=== PATIENT | male | born 1955 | race Caucasian/White ===

== ENCOUNTER 2018-05-10 09:43 | Inpatient (IN) ==
[2018-05-10] MEDS ORDERED: clonazePAM 0.5 MG TAB PO STA (10:29)
[2018-05-10 10:50] LABS: Appearance Urine Clear (Clear); Bacteria Urine Automated Negative (Negative); Bilirubin Urine Negative (Negative); Blood Urine 3+ (Negative); Color Urine Yellow; Epithelial Cell Urine Auto >30 /lpf (0-5); Glucose Urine UA Negative (Negative); Ketones Urine Negative (Negative); Leukocyte Esterase Urine Negative (Negative); Nitrite Urine Negative (Negative); RBC Urine Automated >30 /hpf (0-4); Specific Gravity Urine 1.012 (1.000-1.030); Urobilinogen Urine Negative (Negative); pH Urine 7.5 (4.5-7.5)
[2018-05-10 10:52] LABS: Protein Urine Negative (Negative)
[2018-05-10 11:18] LABS: Amphetamines+Metham, Urine Neg (Neg); Barbiturates, Urine Neg (Neg); Benzodiazepine, Urine Neg (Neg); Cocaine, Urine Neg (Neg); MDMA (Ecstacy), Urine Neg (Neg); Methadone, Urine Neg (Neg); Opiate, Urine Neg (Neg); Phencyclidine, Urine Neg (Neg)
[2018-05-10 11:27] LABS: Basophils # (auto) 0.02 K/uL (0-0.2); Basophils % (auto) 0.4 %; Eosinophils # (auto) 0.12 K/uL (0-0.5); Eosinophils % (auto) 2.4 %; Hematocrit (blood only) 43.8 % (42-52); Hemoglobin 15.4 g/dL (14.0-18.0); Immature Granulocytes # (auto) 0.01 K/uL (0.00-0.02); Immature Granulocytes % (auto) 0.2 %; Lymphocytes # (auto) 0.85 K/uL (1.2-3.4); Lymphocytes % (auto) 17.1 %; Mean Corpuscular Hgb Conc 35.2 g/dL (32-36); Mean Corpuscular Volume 92.6 fL (80-100); Mean Platelet Volume 10.9 fL (7.4-10.4); Monocytes # (auto) 0.61 K/uL (0.11-0.59); Monocytes % (auto) 12.3 %; Neutrophils # (auto) 3.35 K/uL (1.4-6.5); Neutrophils % (auto) 67.6 %; Platelet Count 189 K/uL (130-400); RDW Coefficient of Variation 12.7 % (11.5-14.5); RDW Standard Deviation 43.3 fL (36.4-46.3); Red Blood Count 4.73 M/uL (4.7-6.1); White Blood Count 4.96 K/uL (4.8-10.8)
[2018-05-10 11:45] LABS: BUN Creatinine Ratio 21.8 (10-20); Calcium 8.9 mg/dl (8.5-10.1); Creatinine Clr Calc Pharmacy 95.4 ml/min; Est GFR (African American) 109.8; Est GFR (Non-African American) 94.7; Potassium 4.3 mmol/L (3.5-5.1)
[2018-05-10 11:54] LABS: Acetaminophen < 2 ug/ml (10-30); Salicylate < 1.7 mg/dl (2.8-20)
[2018-05-10 11:56] LABS: Albumin Globulin Ratio 1.3 (0.9-2); Bilirubin,Total 0.4 mg/dl (0.2-1); Globulin 3.2 gm/dl (2.5-4.0); Total Protein 7.2 gm/dl (6.4-8.2)
--- NOTE | 2018-05-10 12:19 | Emergency Department Note ---
Entered by Daphney Rooney acting as a scribe for History of Present Illness General Chief complaint: Mental Health Evaluation Stated complaint: ANXIETY Source: patient and family () Mode of arrival: ambulatory Limitations: no limitations History of Present Illness Onset (ago): week(s) 2 Location: head (psych, anxiety) Pain Consistency: + other (worsening) Quality: + other (anixety, OCD-like symptoms) Associated symptoms: + loss of appetite and + other (The patient complains of OCD-like symptoms, 15 pound weight loss, and loss of sleep. The patient denies abdominal pain. ); no chest pain, no fever/chills (The patient denies fever.) and no shortness of breath The patient is a 62 year old male with a history of borderline hypertension, sleep apnea, and OCD who presents to the ED with complaints of worsening anxiety with an onset of 2 weeks ago. He was previously on venlafaxine which seemed to work for him for a very long time. He was off of it for a year and then was restarted in March after his anxiety worsened with the poor performance of the stock market. He states that the venlafaxine made him feel worse and so he was taken off of this medication about a week ago. Per , the patients side symptoms changed from OCD-like symptoms to depression. The patient notes that he is not suicidal, but is as close to is as you can get. He states that he is a devout [employer] and some of his obsessions have become unbearable. The patient complains of 15 pound weight loss due to loss of appetite, and loss of sleep. He did see his doctor on Thursday who prescribed him Klonopin. He takes 0.25 mg in the morning and in but states that it has not been controlling his anxiety. The patient denies fever, chest pain, shortness of breath, and abdominal pain. Home Medications Home Medications Medication Instructions Recorded Confirmed Type aluminum chloride [Drysol 1 applic TOPICAL DAILY 05/10/18 05/10/18 History Dab-O-Matic] clonazepam 0.25 mg BID PRN 05/10/18 05/10/18 History Allergies Allergy/AdvReac Type Severity Reaction Status Date / Time No Known Allergies Allergy Unverified 05/10/18 10:50 Past Med/Surg History Medical History Anxiety OCD (obsessive compulsive disorder) Social History Preferred Language: German Communication Ability: Effective Public Employment Mediator Required: No Beliefs That Will Affect Care: None Current Living Situation: Family Feels Safe at Home: Yes Smoking Status: Never smoker Hx Alcohol Use: No Hx Substance Use: No Review of Systems See HPI for pertinent positives & negatives. and A total of 10 systems reviewed and were otherwise negative Physical Exam Vital Signs Vital Signs - 24 hr 05/10/18 09:45 05/10/18 10:18 05/10/18 11:13 Temperature 36.5 C Temperature Source Oral Oral Sepsis Recent Fever Within 48 Hours No Sepsis Action Taken by Nursing No Action Required Pulse Rate 95 H Pulse Rate [Finger] Pulse Rhythm Regular Pulse Strength Normal Respiratory Rate 18 Respiratory Effort / Characteristics Non-Labored Respiratory Depth Normal Respiratory Pattern Regular Blood Pressure 165/97 H Blood Pressure [Right Arm] Blood Pressure Mean 119 Blood Pressure Mean [Right Arm] Blood Pressure Position Sitting Blood Pressure Position [Right Arm] Pulse Oximetry 97 Oxygen Delivery Method Room Air Room Air 05/10/18 13:29 05/10/18 14:09 05/10/18 14:50 Temperature 36.6 C Temperature Source Oral Sepsis Recent Fever Within 48 Hours Sepsis Action Taken by Nursing Pulse Rate Pulse Rate [Finger] 96 H 79 Pulse Rhythm Pulse Strength Respiratory Rate 20 16 Respiratory Effort / Characteristics Non-Labored Non-Labored Respiratory Depth Normal Normal Respiratory Pattern Regular Regular Blood Pressure Blood Pressure [Right Arm] 168/89 H 152/92 H Blood Pressure Mean Blood Pressure Mean [Right Arm] 115 112 Blood Pressure Position Blood Pressure Position [Right Arm] Sitting Sitting Pulse Oximetry 96 Oxygen Delivery Method Room Air Constitutional: Vital signs reviewed. Eyes: Pupils are equal round reactive to light. Conjunctiva are noninjected. ENT: Pharynx is clear without erythema or exudate. Mucous membranes are moist. Neck supple without meningeal signs. Respiratory: Clear to auscultation bilaterally. Breath sounds are equal bilaterally. Cardiovascular: Regular rate and rhythm. No rubs or gallops. GI: Soft, nondistended and nontender. Bowel sounds are present. Musculoskeletal: No peripheral edema. No lower extremity tenderness. Integumentary: No cyanosis. Neurological: The patient is awake and alert. No focal deficits. Psychiatric: Very anxious. Course 1007: Past medical records reviewed. The patient was evaluated in room A08, and a complete history and physical examination were performed. 1220: The patient has been accepted upstairs in [address] [place] [address] for psychiatric care. Administered Medications Discontinued Medications Clonazepam (Klonopin) 0.25 mg PO NOW STA Stop: 05/10/18 10:30 Last Admin: 05/10/18 10:38 Dose: 0.25 mg Documented by: [id number] Medical Decision Making Differential Diagnosis Differential Diagnoses Include: Anxiety, depression, panic attack, metabolic derangement, OCD. Medical Records Attestation: I reviewed the patient's medical records. Home Medications Current Medication List: was personally reviewed by me Laboratory Data Attestation: I reviewed the patient's lab results. Result diagrams: 05/10/18 11:11 05/10/18 11:11 Lab Results 05/10/18 05/10/18 05/10/18 Range/Units 10:32 10:32 11:11 WBC 4.96 (4.8-10.8) K/uL RBC 4.73 (4.7-6.1) M/uL Hgb 15.4 (14.0-18.0) g/dL Hct 43.8 (42-52) % MCV 92.6 (80-100) fL MCH 32.6 (25-34) pg MCHC 35.2 (32-36) g/dL RDW Std Deviation 43.3 (36.4-46.3) fL RDW Coeff of [place] 12.7 (11.5-14.5) % Plt Count 189 (130-400) K/uL MPV 10.9 H (7.4-10.4) fL Immature Gran % (Auto) 0.2 % Neut % (Auto) 67.6 % Lymph % (Auto) 17.1 % [place] % (Auto) 12.3 % Eos % (Auto) 2.4 % Baso % (Auto) 0.4 % Immature Gran # (Auto) 0.01 (0.00-0.02) K/uL Neut # (Auto) 3.35 (1.4-6.5) K/uL Lymph # (Auto) 0.85 L (1.2-3.4) K/uL [place] # (Auto) 0.61 H (0.11-0.59) K/uL Eos # (Auto) 0.12 (0-0.5) K/uL Baso # (Auto) 0.02 (0-0.2) K/uL Sodium (136-145) mmol/L Potassium (3.5-5.1) mmol/L Chloride (98-107) mmol/L Carbon Dioxide (21-32) mmol/L Anion Gap (3-11) BUN (7-18) mg/dl Creatinine (0.6-1.4) mg/dl Est Cr Clr Drug Dosing ml/min Est GFR ( Amer) Est GFR (Non-Af Amer) BUN/Creatinine Ratio (10-20) Glucose (70-99) mg/dl Calcium (8.5-10.1) mg/dl Total Bilirubin (0.2-1) mg/dl AST (15-37) U/L ALT (12-78) U/L Alkaline Phosphatase (45-117) U/L Total Protein (6.4-8.2) gm/dl Albumin (3.4-5.0) gm/dl Globulin (2.5-4.0) gm/dl Albumin/Globulin Ratio (0.9-2) TSH (0.300-4.500) uIu/ml Urine Color Yellow Urine Appearance Clear (Clear) Urine pH 7.5 (4.5-7.5) Ur Specific [place] 1.012 (1.000-1.030) Urine Protein Negative (Negative) Urine Glucose (UA) Negative (Negative) Urine Ketones Negative (Negative) Urine Blood 3+ H (Negative) Urine Nitrite Negative (Negative) Urine Bilirubin Negative (Negative) Urine Urobilinogen Negative (Negative) Ur Leukocyte Esterase Negative (Negative) Urine WBC (Auto) 1-5 (0-5) /hpf Urine RBC (Auto) >30 H (0-4) /hpf U Hyaline Cast (Auto) 1-5 (0-5) /lpf U Epithel Cells (Auto) >30 H (0-5) /lpf Urine Bacteria (Auto) Negative (Negative) Salicylates (2.8-20) mg/dl Urine Opiates Screen Neg (Neg) Ur Methadone, Qual Neg (Neg) Acetaminophen (10-30) ug/ml Urine Barbiturates Neg (Neg) Ur Phencyclidine (PCP) Neg (Neg) U Amphetamin/Meth Scrn Neg (Neg) MDMA (Ecstasy) Screen Neg (Neg) U Benzodiazepines Scrn Neg (Neg) Ur Cocaine Metabolite Neg (Neg) U Marijuana (THC) Screen Neg (Neg) Ethyl Alcohol mg/dL (0-3) mg/dl 05/10/18 05/10/18 05/10/18 Range/Units 11:11 11:11 11:11 WBC (4.8-10.8) K/uL RBC (4.7-6.1) M/uL Hgb (14.0-18.0) g/dL Hct (42-52) % MCV (80-100) fL MCH (25-34) pg MCHC (32-36) g/dL RDW Std Deviation (36.4-46.3) fL RDW Coeff of [place] (11.5-14.5) % Plt Count (130-400) K/uL MPV (7.4-10.4) fL Immature Gran % (Auto) % Neut % (Auto) % Lymph % (Auto) % [place] % (Auto) % Eos % (Auto) % Baso % (Auto) % Immature Gran # (Auto) (0.00-0.02) K/uL Neut # (Auto) (1.4-6.5) K/uL Lymph # (Auto) (1.2-3.4) K/uL [place] # (Auto) (0.11-0.59) K/uL Eos # (Auto) (0-0.5) K/uL Baso # (Auto) (0-0.2) K/uL Sodium 139 (136-145) mmol/L Potassium 4.3 (3.5-5.1) mmol/L Chloride 105 (98-107) mmol/L Carbon Dioxide 27 (21-32) mmol/L Anion Gap 7.0 (3-11) BUN 19 H (7-18) mg/dl Creatinine 0.85 (0.6-1.4) mg/dl Est Cr Clr Drug Dosing 95.4 ml/min Est GFR ( Amer) 109.8 Est GFR (Non-Af Amer) 94.7 BUN/Creatinine Ratio 21.8 H (10-20) Glucose 98 (70-99) mg/dl Calcium 8.9 (8.5-10.1) mg/dl Total Bilirubin 0.4 (0.2-1) mg/dl AST 16 (15-37) U/L ALT 49 (12-78) U/L Alkaline Phosphatase 53 (45-117) U/L Total Protein 7.2 (6.4-8.2) gm/dl Albumin 4.0 (3.4-5.0) gm/dl Globulin 3.2 (2.5-4.0) gm/dl Albumin/Globulin Ratio 1.3 (0.9-2) TSH 1.650 (0.300-4.500) uIu/ml Urine Color Urine Appearance (Clear) Urine pH (4.5-7.5) Ur Specific [place] (1.000-1.030) Urine Protein (Negative) Urine Glucose (UA) (Negative) Urine Ketones (Negative) Urine Blood (Negative) Urine Nitrite (Negative) Urine Bilirubin (Negative) Urine Urobilinogen (Negative) Ur Leukocyte Esterase (Negative) Urine WBC (Auto) (0-5) /hpf Urine RBC (Auto) (0-4) /hpf U Hyaline Cast (Auto) (0-5) /lpf U Epithel Cells (Auto) (0-5) /lpf Urine Bacteria (Auto) (Negative) Salicylates < 1.7 L (2.8-20) mg/dl Urine Opiates Screen (Neg) Ur Methadone, Qual (Neg) Acetaminophen < 2 L (10-30) ug/ml Urine Barbiturates (Neg) Ur Phencyclidine (PCP) (Neg) U Amphetamin/Meth Scrn (Neg) MDMA (Ecstasy) Screen (Neg) U Benzodiazepines Scrn (Neg) Ur Cocaine Metabolite (Neg) U Marijuana (THC) Screen (Neg) Ethyl Alcohol mg/dL < 3.0 (0-3) mg/dl Blood Pressure Blood Pressure Findings: Elevated blood pressure Blood Pressure Disposition: Referred to patients primary care provider MDM Narrative I did perform a limited focused review of portions of the patient's old chart on the electronic medical record. The patient has had no recent pertinent visits to this hospital. I did evaluate the patient as noted above. The patient is presenting with worsening anxiety. I did order and review the patient's blood work as noted in the electronic medical record. Patient was medically cleared. He was assessed by the mental health machine adjuster leader case trim. He was referred to [facility] for inpatient [facility] care. He was accepted for hospitalization by [facility] Impression & Plan Severe anxiety Discharge Plan Visit Data *Final* Discharge Date/Time: 05/10/18 13:31 Chief Complaint: Mental Health Evaluation Stated Complaint: ANXIETY Other Complaint: Anxiety ED Provider: Hardeep Jeffery Discharge Problem: Severe anxiety Patient Disposition: Admitted As Inpatient Discharge Instructions Interventions: ED Discharge Assessment Last Done: 05/10/18 13:31 The scribe's documentation has been prepared under my direction and personally reviewed by me in its entirety. I confirm that the note above accurately refl ects all work, treatment, procedures, and medical decision making performed by me.
[2018-05-10] MEDS ORDERED: SODIUM CHLORIDE 0.65% NA SOLN 45 ML (OCEAN) PRN (12:51)
[2018-05-10] MEDS ORDERED: ACETAMINOPHEN 325 MG TAB PO PRN (12:51)
[2018-05-10] MEDS ORDERED: ALUMINUM/MAGNESIUM SUSP 30 ML UDC PO PRN (12:51)
[2018-05-10] MEDS ORDERED: MAGNESIUM HYDROXIDE SUSP 30 ML UDC PO PRN (12:51)
[2018-05-10] MEDS ORDERED: BISMUTH SUBSALICYLATE PER ML OMNICELL CHARGE PO PRN (12:51)
--- NOTE | 2018-05-10 14:57 | History & Physical ---
Date of Service May 10, 2018 Impression / Recommendations Impression This 62-year-old man presents with a somewhat atypical history of obsessive- compulsive disorder. He reports that his obsessive-compulsive diet adds were triggered by an event that occurred in 2001, when he was in his 40s, and have persisted, at least intermittently, since that time. At various times since 2001 the patient has been on several psychiatric medications. These include Paxil (ineffective and resulted in anorgasmia), Wellbutrin, which she feels was partially effective for depression, but not effective with his obsessive symptoms, and Lexapro which she also feels was effective. Most recently, he had been taking Pristiq, but stopped this medication because he was "feeling great" at the beginning of 2018. His obsessive symptoms returned in February following a theological discussion with his father regarding the existence of hell, and have intensified since that time. Further, as is often the case, the patient's obsessive symptoms were attended by symptoms of depression that include marketing operations associate awakening, psychosocial withdrawal, severe anxiety, decreased concentration and focus, anergia, anhedonia, apathy, and withdrawal. It may be that the patient has obsessive compulsive personality style that tends to become exacerbated while he is experiencing depression. He indicates that even off medication he can be free of obsessive features entirely, and is never quite sure what may trigger a return to an obsessive-compulsive diet adds. For example, he states, "sometimes the stock market goes down, and I do not obsess. Other times, the market goes down and I abscess completely and have to check all the time to see where the market stands," and he notes that once he gets an obsessional thought in his head he is completely unable to discharge. The plan is to actively treat the depression and anxiety with medications that may also be effective in treating OCD. He may benefit as an outpatient from cognitive behavioral therapy. (1) Generalized anxiety disorder: 05/10/18 - Begin Sertraline 50 mg daily and titrate as indicated. - Begin BuSpar 5 mg BID and titrate as indicated. Present on Admission?: Yes (2) Obsessive compulsive disorder: 05/10/18 - Begin sertraline 50 mg daily for both depression and OCD. -Clonazpam HS for night-time obsessive features. Present on Admission?: Yes (3) Major depress dis, severe: 05/10/18 -Sertraline 50 mg HS for depression, anxiety and OCD symptoms. -Not suicidal, per the patient, but has a gun collection at home and is not disposed to secure it. -Hydroxyzine 50 mg HS for sleep (standing order) -Consider Ambien or mirtazepine if not effective. (Reports trazodone was not effective in the past.) Present on Admission?: Yes Protective Factors Assessment Zoroastrianism Beliefs: Yes : Yes Responsible for Young Children: No Employed: No (Retired) Stable Relationships: Yes Supportive Family: Yes Good Rapport with Provider: Yes Absence of Any Risk Factors Above: No (The patient notes that he has guns in the house, and insists that he does not consider this to be a risk for him) Psychiatric History Identifying Data SUKH MERCADO is a 62-year-old M who currently with his , qasim. He has a history of depression and obsessive compulsive disorder. He was admitted on 05/10/18 12:52 on a 201 voluntary because of an inability to function at home. Specifically, the patient has been so obsessively absorbed with various concerns that he has been unable to independently perform routine activities of daily living. He also reports that he has not been sleeping more than "3 or 4 hours" a night with marketing operations associate awakening, and has had a substantial loss of appetitea circumstance that has resulted in a 15 pound weight loss since February. Chief Complaint "I can't function at home". History of Present Illness The patient reports that since mid February he has obsessed almost constantly about several issues, but primarily about the congregational question of "is there a hell?" Reportedly, the patient and his father recently had an argument on the subject, with the patient's father, a former smelter operator in the [facility] [employer] of [place], telling the patient that he does not believe in the "cartoon" version of hell and, this circumstance, because the patient to have what he refers to as a "crisis of curz." Patient notes that he first became aware of his problem with obsessive-compulsive disorder when, in 2001, he was told that he had failed a section of a lie detector test that he had to take as part of a security clearance for his job. Specifically, he was told that he had failed the "disclosure" section which had to do with his disclosing confidential government and information to others. He could not recall doing so, but obsessed about the possibility that he might have inadvertently mentioned something to his . He subsequently periodically reported that he "might have" disclose certain things to his and, eventually, he lost his security clearance. (He was later told that part of the test often involves the examiner falsely asserting that that portion of the test had been failed.) He is security was restored in 2003, but subsequent to that he became aware of obsessional thoughts over such things as the stock market. After the stock market bear market of 2007 he found that he was compulsively checking the stock market in a ritualized fashion. Initially, the patient recognized that what had originally been "just OCD" turned to OCD and depression. The patient does not report obsessive-compulsive diad such as germ phobia/handwashing, checking, counting, or excessive devotion to order or lists. The patient does report that he has had great deal of difficulty sleeping. Although he does not have initial insomnia, he describes marketing operations associate awakening, usually at around 3 AM, and finds that he begins obsessing and is unable to go back to sleep. He notes that this pattern has been in place for quite some time. He was prescribed clonazepam 0.25 mg at bedtime, and although he feels this helps "a little," he says that it has not really allowed him to sleep much longer than he was sleeping without it. Further, the patient reports feeling generally anxious, and reports that his mood is both anxious and depressed. He complains of decreased energy, anhedonia, and psychosocial withdrawal. 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 I am too anxious and obsessed for anything else." There is no history of elvira or hypomania. The patient reports that he has "quite a gun collection" at home. The guns are secured in the cabinet, but he has a coles to them. He states, "100%, I am not going to commit suicide." I try to explain to him that with depression, suicidal ideation can subsequently occur if her depression becomes worse and that I would recommend that he secure the guns. His response was to say "that really will not be necessary. I will never commit suicide." In March 2018 he was placed on Pristiq at doses that range from 25 up to 100 mg a day. (He reports that he feels that he responded favorably to Pristiq in the past.) However, this time around he felt that Pristiq was not effective and after 4 days at 100 mg daily his told him to go back to the doctor because "it was not working." His primary care doctor, the prescribing physician, told him that he wanted him off all psychiatric medications for "2 weeks," and although the patient had told me that Pristiq was not helping, he he notes that discontinuing the medication seems to have resulted in an intensification of his earlier symptoms. Over the years, several psychiatric medications have been tried. He reports that he was given Paxil at an unspecified dose. He notes that he does not feel Paxil helped, and he experienced anorgasmia as a side effect. Later, he was given bupropion, again at unspecified dose, and he reports that he felt that that helped, at least with depression. Also, the patient had a trial of Lexapro, and the patient's recollection is that this medication had been helpful and did not result in an orgasmic. Past Psychiatric History Previous Psych History: The patient reports that he is taken several psychiatric medications in the past for depression and OCD. There is no history of intent ional self-injurious behaviors, the patient also has no history of violence directed towards the person or property of others. Current Psychiatric Diagnosis: Anxiety Outpatient Services: The patient reports that he is taking psychiatric medications as prescribed by primary care physicians over the years. He hopes to find a local psychiatrist and psychologist, but has been unable to secure an appointment on his own. His past medications have included Paxil (discontinued because it was not effective and caused anorgasmia), Wellbutrin, which was partly effective, Lexapro, which was also felt to be effective, and, most recently, Pristiq. He estimates that he discontinued Pristiq at the beginning of 2017 because he was feeling "fantastic," after the exacerbation of his depression and obsessive symptoms in February 2018 he started back on Pristiq at 25 mg a day, then 50 mg a day, and then 100 mg a day. He says the Pristiq was not effective, but then he added that his mood and obsessive features got "worse" when he stopped the medication on the advice of his primary care doctor. He stopped t Pristiq s approximately a week or 2 ago. He is also been taking diazepam 0.25 mg at bedtime. Previous Psych Admissions: This is the patient's first psychiatric hospitalizat ion History of Previous Suicide Attempt: No Describe Attempts in the Past: No previous attempts Past Head Trauma/Neuro History History of Concussion/Seizure: No Allergies Allergy/AdvReac Type Severity Reaction Status Date / Time No Known Allergies Allergy Unverified 05/10/18 10:50 Home Medications Home Medications Medication Instructions Recorded Confirmed Type aluminum chloride [Drysol 1 applic TOPICAL DAILY 05/10/18 05/10/18 History Dab-O-Matic] clonazepam 0.25 mg BID PRN 05/10/18 05/10/18 History Family History Family History of: None Alcohol History Hx of Alcohol Use Over the Past 12 Months: No AUDIT Total Score: 0 Smoking Use Smoking Status: Never smoker Substance History Hx of Prescription Med Misuse Over the Past 12 Months: No Hx of Over the Counter Med Misuse Over the Past 12 Months: No Hx of Inhalent Misuse Over the Past 12 Months: No Hx of Organic Substance Use Over the Past 12 Months: No Hx of Illegal Substances/Street Drug Use Over Past 12 Months: No Personal History Living Arrangements: Home Patient History Medical History Anxiety OCD (obsessive compulsive disorder) Social History Preferred Language: Macedonian Communication Ability: Effective Learning Disabilities Resource Teacher Required: No Beliefs That Will Affect Care: None Current Living Situation: Family Feels Safe at Home: Yes Smoking Status: Never smoker Hx Alcohol Use: No Hx Substance Use: No Review of Systems All systems reviewed & are unremarkable except as noted in HPI & below The physical examination and review of systems completed by Harleen Newman MD have been reviewed and are accepted as medical clearance to the behavioral health unit. Physical Exam Psychiatric Orientation: alert and oriented x 3 Apperance: appropriately groomed Eye Contact: good eye contact Motor Behavior: steady gait and station The patient's thought processes are somewhat circumferential and overinclusive. The patient appears to have significant difficulty concentrating, as direct function of his tendency to obsess. He often does not attend to what I am saying to him during the interview and it becomes apparent that he has stopped listening because he is thinking of something else he wants to say or add to, or reiterate what he had previously said. Affect: + depressed affect and + anxious affect Mood: + depressed mood and + anxious mood Thought Process: + circumstantial thought process Thought Content: + preoccupation, + obsessions and reality based without delusions Suicidal Thoughts: denies suicidal thoughts Homicidal Thoughts: denies homicidal thoughts Hallucinations: no auditory hallucinations Cognition: recent memory grossly intact, remote memory grossly intact, attention grossly intact and language grossly intact Estimated Intelligence: + above average estimated intelligence Insight: + fair insight Judgement: good judgement Vital Signs (Past 24 Hours) Last Vital Signs Temp 36.5 C 05/10/18 09:45 Pulse 96 H 05/10/18 13:29 Resp 20 05/10/18 13:29 BP 168/89 H 05/10/18 13:29 Pulse Ox 96 05/10/18 13:29 Results & Data Laboratory Results Laboratory Results - last 24 hr 05/10/18 05/10/18 05/10/18 10:32 10:32 11:11 WBC 4.96 RBC 4.73 Hgb 15.4 Hct 43.8 MCV 92.6 MCH 32.6 MCHC 35.2 RDW Std Deviation 43.3 RDW Coeff of [place] 12.7 Plt Count 189 MPV 10.9 H Immature Gran % (Auto) 0.2 Neut % (Auto) 67.6 Lymph % (Auto) 17.1 [place] % (Auto) 12.3 Eos % (Auto) 2.4 Baso % (Auto) 0.4 Immature Gran # (Auto) 0.01 Neut # (Auto) 3.35 Lymph # (Auto) 0.85 L [place] # (Auto) 0.61 H Eos # (Auto) 0.12 Baso # (Auto) 0.02 Sodium Potassium Chloride Carbon Dioxide Anion Gap BUN Creatinine Est Cr Clr Drug Dosing Est GFR ( Amer) Est GFR (Non-Af Amer) BUN/Creatinine Ratio Glucose Calcium Total Bilirubin AST ALT Alkaline Phosphatase Total Protein Albumin Globulin Albumin/Globulin Ratio TSH Urine Color Yellow Urine Appearance Clear Urine pH 7.5 Ur Specific [place] 1.012 Urine Protein Negative Urine Glucose (UA) Negative Urine Ketones Negative Urine Blood 3+ H Urine Nitrite Negative Urine Bilirubin Negative Urine Urobilinogen Negative Ur Leukocyte Esterase Negative Urine WBC (Auto) 1-5 Urine RBC (Auto) >30 H U Hyaline Cast (Auto) 1-5 U Epithel Cells (Auto) >30 H Urine Bacteria (Auto) Negative Salicylates Urine Opiates Screen Neg Ur Methadone, Qual Neg Acetaminophen Urine Barbiturates Neg Ur Phencyclidine (PCP) Neg U Amphetamin/Meth Scrn Neg MDMA (Ecstasy) Screen Neg U Benzodiazepines Scrn Neg Ur Cocaine Metabolite Neg U Marijuana (THC) Screen Neg Ethyl Alcohol mg/dL 05/10/18 05/10/18 05/10/18 11:11 11:11 11:11 WBC RBC Hgb Hct MCV MCH MCHC RDW Std Deviation RDW Coeff of [place] Plt Count MPV Immature Gran % (Auto) Neut % (Auto) Lymph % (Auto) [place] % (Auto) Eos % (Auto) Baso % (Auto) Immature Gran # (Auto) Neut # (Auto) Lymph # (Auto) [place] # (Auto) Eos # (Auto) Baso # (Auto) Sodium 139 Potassium 4.3 Chloride 105 Carbon Dioxide 27 Anion Gap 7.0 BUN 19 H Creatinine 0.85 Est Cr Clr Drug Dosing 95.4 Est GFR ( Amer) 109.8 Est GFR (Non-Af Amer) 94.7 BUN/Creatinine Ratio 21.8 H Glucose 98 Calcium 8.9 Total Bilirubin 0.4 AST 16 ALT 49 Alkaline Phosphatase 53 Total Protein 7.2 Albumin 4.0 Globulin 3.2 Albumin/Globulin Ratio 1.3 TSH 1.650 Urine Color Urine Appearance Urine pH Ur Specific [place] Urine Protein Urine Glucose (UA) Urine Ketones Urine Blood Urine Nitrite Urine Bilirubin Urine Urobilinogen Ur Leukocyte Esterase Urine WBC (Auto) Urine RBC (Auto) U Hyaline Cast (Auto) U Epithel Cells (Auto) Urine Bacteria (Auto) Salicylates < 1.7 L Urine Opiates Screen Ur Methadone, Qual Acetaminophen < 2 L Urine Barbiturates Ur Phencyclidine (PCP) U Amphetamin/Meth Scrn MDMA (Ecstasy) Screen U Benzodiazepines Scrn Ur Cocaine Metabolite U Marijuana (THC) Screen Ethyl Alcohol mg/dL < 3.0 Current Inpatient Medications Current Inpatient Medications: Current Inpatient Medications Acetaminophen (Tylenol) 650 mg PO Q4H PRN PRN Reason: Headache or Minor Fever Stop: 06/09/18 12:50 Al Hydrox/Mg Hydrox/Simethicone (Maalox) 30 ml PO Q4H PRN PRN Reason: GI Upset Stop: 06/09/18 12:50 Bismuth Subsalicylate (Kaopectate) 15 ml PO PRN PRN PRN Reason: Loose Stool Stop: 06/09/18 12:50 Buspirone HCl (Buspar) 5 mg PO BID MALACHI Stop: 06/09/18 20:59 Hydroxyzine HCl (Vistaril) 25 mg PO Q4H PRN PRN Reason: Anxiety Stop: 06/09/18 12:50 Hydroxyzine HCl (Vistaril) 50 mg PO HS MALACHI Stop: 06/09/18 21:59 Magnesium Hydroxide (Milk Of Magnesia) 30 ml PO DAILY PRN PRN Reason: Heartburn Stop: 06/09/18 12:50 Sertraline HCl (Zoloft) 50 mg PO QAM MALACHI Stop: 06/09/18 14:29 Sodium Chloride ([place] Nasal) 1 - 2 sprays NA PRN PRN PRN Reason: Nasal Dryness/Congestion Stop: 06/09/18 12:50 CPT Code CPT Code Initial Hospital Care: 24060
[2018-05-10] MEDS: SERTRALINE HCL 50 MG TABLET PO SCH (15:58)
[2018-05-11] MEDS: clonazePAM 0.5 MG TAB PO PRN (01:35)
[2018-05-11] MEDS: SERTRALINE HCL 50 MG TABLET PO SCH (07:40)
--- NOTE | 2018-05-11 11:49 | Psychiatric Progress Note ---
Date of Service May 11, 2018 Impression / Recommendations Impression Today, the patient reports that he slept somewhat better last night. 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 At the same time, he tells me that his anxiety and depression have not improved. He notes that he his anxiety tends to peak in the late morning, usually at around 10 AM or 11 AM. The patient reports continued obsessional thoughts regarding matters of advent doctor and and the inerrancy of biblical scripture. He reports no adverse effects associated with sertraline or BuSpar, thus far. However, he reports that neither has seemed to have had any effect on his depression or his anxiety, and I explained to the patient's that we would not necessarily expect him to enjoy immediate relief, but, instead, both medications generally take time to become effective. He was given as needed hydroxyzine 25 mg for anxiety this morning, and nursing staff report that it was ineffective in managing his anxiety, and the patient endorses this finding. Today, we discussed various treatment options. Patient reports that he has tolerated sertraline and buspirone well without any noted side effects. We had considered adding aripiprazole as an adjunct to sertraline, but the first step will be to increase the sertraline to a more standard dosage. Today the sertraline is being increased to 100 mg daily. We are also increasing buspirone from a dose of 5 mg twice a day to a dose of 10 mg 3 times a day. Patient explains that he has been taking clonazepam 0.25 mg in the morning as well as at bedtime, and has tolerated 0.25 mg without excessive sedation. He notes that it is also been effective in managing the overwhelming anxiety which he describes as "holding [him] prisoner." We also discussed the question of whether he should take a clonazepam in the middle the night she awakened and not be able to fall back to sleep, and I advised him that at the low dose of 0.25 mg it would be acceptable for him to take clonazepam as late as 3:30 in the morning, but I would not advise him taking it after that because he will be getting his morning dose in a few hours. He tells me that last night was the best night sleep he has had a long time, and attributes that to taking the Klonopin between 1 and 2 AM when he awakened. I also suggested that he request a visit from his vice president biostatistics as a possible source of comfort. (1) Generalized anxiety disorder: 05/10/18 - Begin Sertraline 50 mg daily and titrate as indicated. - Begin BuSpar 5 mg BID and titrate as indicated. 05/11/18 -Increase sertraline to 100 mg daily. -Give clonazepam 0.5 mg stat for anxiety. -Begin clonazepam 0.25 qam as a standing dose. Offer clonazepam 0.25 BID PRN anxiety during the day. Continue clonazepam 0.25 mg HS, with repeat times one before 3:30AM. -Increase BuSpar to 10 mg BID. (2) Obsessive compulsive disorder: 05/10/18 - Begin sertraline 50 mg daily for both depression and OCD. -Clonazpam HS for night-time obsessive features. 05/11/18 - Increase sertraline to 100 mg daily. - Discontinue suicide precautions. The patient strongly denies any suicidal ideation. (3) Major depress dis, severe: 05/10/18 -Sertraline 50 mg HS for depression, anxiety and OCD symptoms. -Not suicidal, per the patient, but has a gun collection at home and is not disposed to secure it. -Hydroxyzine 50 mg HS for sleep (standing order) -Consider Ambien or mirtazepine if not effective. (Reports trazodone was not effective in the past.) 05/11/18 -Increase sertraline to 100 mg daily and continue to titrate -Consider adding aripiprazole 5 mg as an adjunct. Present on Admission?: Yes Inventory Assets Strengths: Motivated to recovery. Supportive family. Successful career. Needs: Relief from depression, generalized anxiety, and obsessional thoughts. Risk Factors Assessment Male: Yes : Yes Do You Have Access To A Gun?: Yes Health Problems: No Mental Health Diagnoses: Yes Substance Use Disorders: No Previous Attempt: No Previous Attempt; Highly Lethal: No Previous Attempt; Planned: No Previous Attempt; Didn't Tell Anyone: No Family History of Suicide: No Previous Psychiatric Hospitalization: No Hopelessness: No Smoker: No Protective Factors Assessment Judaism Beliefs: Yes : Yes Responsible for Young Children: No Employed: No (Retired) Stable Relationships: Yes Supportive Family: Yes Good Rapport with Provider: Yes Absence of Any Risk Factors Above: No (The patient notes that he has guns in the house, and insists that he does not consider this to be a risk for him) Interval History Chief Complaint "I slept better, but I'm still really, really nervous." Review of Systems Sleep Information Total Hours of Sleep: 5.5 Sleep Comments: pt given vistaril per rn. pt on c-pap during the night. pt on q-15 minute checks Meal Information Percent Meal Consumed - Breakfast: 100 Percent Meal Consumed - Dinner: 100 Subjective Subjective Patient was seen & assessed and interval progress reviewed with Treatment Team. I met with the patient individually in order to assess his current mental status, evaluate his response to treatment, coordinate any adjustments in his medication regimen, and address issues and concerns that may arise. Today, I was able to talk with the patient more about the fact that his obsessive- compulsive symptoms seem to be somewhat atypical, and that they did not began in childhood and, instead, by his own report, began when he was in his 40s (in 2001.) The patient tells me that he has been thinking about this and realizes that in years past he had other, similar, obsessive-compulsive dyads. 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 Within that context, he became obsessed with the idea that should he call 1 of the partners they would tell him that they had decided to drop out of the business activity, and the anxiety associated with that fear compelled him to never call anyone. The patient chuckled when he said, of course, that became a self-fulfilling prophecy. When I never called him, they called me to tell me they were dropping out because there was no activity." However, we looked at the fact that his father and he had had the discussion regarding the existence of boris topic about which the patient tells me he is now obsessedoriginally in December 2017, but the obsessive ruminations regarding this did not occur until mid February. The patient also confirms that he stopped psychiatric medications at the beginning of 2017 and continued to do very well for the next 11 monthswith no obsessions, no anxiety, and no depression. He explains this by saying, "I guess that d uring that. There was nothing for me to obsess about. Everything was going well. The stock market was good, so I did not obsess about that." However, again, the current obsession has to do with the existence of the biblical hell, and the precipitant for that occurred in December without him developing obsessive symptoms around it at the time. Today, the patient emphasizes how very anxious he is. I had an opportunity to speak with his primary care physician, Dr. Newman, and she is in agreement with the current treatment plan. Physical Exam Psychiatric Orientation: oriented x 3 Apperance: appropriately dressed and appropriately groomed Eye Contact: good eye contact Motor Behavior: steady gait and station Speech: normal rate/rhythm/volume of speech Affect: + depressed affect and + anxious affect Mood: + depressed mood and + anxious mood Thought Process: goal directed thought process, linear/logical thought process and clear/coherent thought process Thought Content: + preoccupation, + obsessions and reality based without delusions Suicidal Thoughts: denies suicidal thoughts Homicidal Thoughts: denies homicidal thoughts Hallucinations: no auditory hallucinations Cognition: recent memory grossly intact, remote memory grossly intact and language grossly intact Estimated Intelligence: + above average estimated intelligence Insight: + fair insight Judgement: good judgement Vital Signs (Past 24 Hours) Last Vital Signs Temp 36.4 C L 05/11/18 06:48 Pulse 81 05/11/18 06:49 Resp 16 05/11/18 06:48 BP 150/97 H 05/11/18 06:49 Pulse Ox 96 05/10/18 13:29 Results & Data Laboratory Results Laboratory Results - last 24 hr 05/10/18 05/10/18 05/10/18 11:11 11:11 11:11 Sodium 139 Potassium 4.3 Chloride 105 Carbon Dioxide 27 Anion Gap 7.0 BUN 19 H Creatinine 0.85 Est Cr Clr Drug Dosing 95.4 Est GFR ( Amer) 109.8 Est GFR (Non-Af Amer) 94.7 BUN/Creatinine Ratio 21.8 H Glucose 98 Calcium 8.9 Total Bilirubin 0.4 AST 16 ALT 49 Alkaline Phosphatase 53 Total Protein 7.2 Albumin 4.0 Globulin 3.2 Albumin/Globulin Ratio 1.3 TSH 1.650 Salicylates < 1.7 L Acetaminophen < 2 L Ethyl Alcohol mg/dL < 3.0 Current Inpatient Medications Current Inpatient Medications: Current Inpatient Medications Acetaminophen (Tylenol) 650 mg PO Q4H PRN PRN Reason: Headache or Minor Fever Stop: 06/09/18 12:50 Al Hydrox/Mg Hydrox/Simethicone (Maalox) 30 ml PO Q4H PRN PRN Reason: GI Upset Stop: 06/09/18 12:50 Bismuth Subsalicylate (Kaopectate) 15 ml PO PRN PRN PRN Reason: Loose Stool Stop: 06/09/18 12:50 Buspirone HCl (Buspar) 5 mg PO BID [facility] Stop: 06/09/18 20:59 Last Admin: 05/11/18 07:27 Dose: 5 mg Documented by: Clonazepam (Klonopin) 0.25 mg PO HS PRN PRN Reason: Sleep Stop: 06/09/18 16:24 Last Admin: 05/11/18 01:35 Dose: 0.25 mg Documented by: Hydroxyzine HCl (Vistaril) 25 mg PO Q4H PRN PRN Reason: Anxiety Stop: 06/09/18 12:50 Last Admin: 05/11/18 09:56 Dose: 25 mg Documented by: Hydroxyzine HCl (Vistaril) 50 mg PO HS [facility] Stop: 06/09/18 21:59 Last Admin: 05/10/18 21:18 Dose: 50 mg Documented by: Magnesium Hydroxide (Milk Of Magnesia) 30 ml PO DAILY PRN PRN Reason: Heartburn Stop: 06/09/18 12:50 Sertraline HCl (Zoloft) 50 mg PO QAM [facility] Stop: 06/09/18 14:29 Last Admin: 05/11/18 07:40 Dose: 50 mg Documented by: Sodium Chloride (Pinch Nasal) 1 - 2 sprays NA PRN PRN PRN Reason: Nasal Dryness/Congestion Stop: 06/09/18 12:50 Post Discharge Appointments Primary Care Physician Name Of Family Doctor: [facility] - Dr. Newman Date of Appointment with PCP: 05/11/18 Therapist Name of Therapist: [email or web address] 1st appt 05/12 Date of Therapist Appointment: 05/12/18 CPT Code CPT Code 77913
[2018-05-11] MEDS ORDERED: clonazePAM 0.5 MG TAB PO STA (12:47)
[2018-05-11] MEDS ORDERED: clonazePAM 0.5 MG TAB PO PRN (12:50)
[2018-05-11] MEDS: FLUTICASONE PROPIONATE NA SPR 16 GM BTL SCH (14:29)
[2018-05-11] MEDS: CICLOPIROX 8% EXT SCH (21:12)
[2018-05-12] MEDS: clonazePAM 0.5 MG TAB PO PRN (03:25)
[2018-05-12] MEDS: SERTRALINE HCL 100 MG TABLET PO SCH (08:36)
[2018-05-12] MEDS: FLUTICASONE PROPIONATE NA SPR 16 GM BTL SCH (08:36)
[2018-05-12] MEDS ORDERED: clonazePAM 0.5 MG TAB PO SCH (09:00)
[2018-05-12] MEDS ORDERED: clonazePAM 1 MG TAB PO STA (09:22)
--- NOTE | 2018-05-12 12:45 | Psychiatric Progress Note ---
Date of Service May 12, 2018 Impression / Recommendations Impression The patient reports a chronic diurnal variation to his anxiety, with AM's being worst. He responded to a dose of Klonpin this AM. His Zoloft goes to 100 mg today as well. Will increase Klonopin to 0.5 mg BID until Zoloft therapeutic, as he may need higher doses of the SSRI to be beneficial. (1) Generalized anxiety disorder: 05/10/18 - Begin Sertraline 50 mg daily and titrate as indicated. - Begin BuSpar 5 mg BID and titrate as indicated. 05/11/18 -Increase sertraline to 100 mg daily. -Give clonazepam 0.5 mg stat for anxiety. -Begin clonazepam 0.25 qam as a standing dose. Offer clonazepam 0.25 BID PRN anxiety during the day. Continue clonazepam 0.25 mg HS, with repeat times one before 3:30AM. -Increase BuSpar to 10 mg BID. 05/12/18 - Increase Klonopin to 0.5 mg BID and continue prn's - Provide the patient with written material re: mindfulness and grounding exercises. (2) Obsessive compulsive disorder: 05/10/18 - Begin sertraline 50 mg daily for both depression and OCD. -Clonazpam HS for night-time obsessive features. 05/11/18 - Increase sertraline to 100 mg daily. - Discontinue suicide precautions. The patient strongly denies any suicidal ideation. (3) Major depress dis, severe: 05/10/18 -Sertraline 50 mg HS for depression, anxiety and OCD symptoms. -Not suicidal, per the patient, but has a gun collection at home and is not disposed to secure it. -Hydroxyzine 50 mg HS for sleep (standing order) -Consider Ambien or mirtazepine if not effective. (Reports trazodone was not effective in the past.) 05/11/18 -Increase sertraline to 100 mg daily and continue to titrate -Consider adding aripiprazole 5 mg as an adjunct. 05/12 - Meds as above Inventory Assets Strengths: Motivated to recovery. Supportive family. Successful career. Needs: Relief from depression, generalized anxiety, and obsessional thoughts. Risk Factors Assessment Male: Yes : Yes Do You Have Access To A Gun?: Yes Health Problems: No Mental Health Diagnoses: Yes Substance Use Disorders: No Previous Attempt: No Previous Attempt; Highly Lethal: No Previous Attempt; Planned: No Previous Attempt; Didn't Tell Anyone: No Family History of Suicide: No Previous Psychiatric Hospitalization: No Hopelessness: No Smoker: No Protective Factors Assessment Caodaism Beliefs: Yes : Yes Responsible for Young Children: No Employed: No (Retired) Stable Relationships: Yes Supportive Family: Yes Good Rapport with Provider: Yes Absence of Any Risk Factors Above: No (The patient notes that he has guns in the house, and insists that he does not consider this to be a risk for him) Interval History Identifying Information 62 yo male admitted with severe and debilitating depression and anxiety. He is admitted voluntarily. Chief Complaint "Utter despair. ". Review of Systems Sleep Information Total Hours of Sleep: 5.5 Sleep Comments: pt on q-15 minute checks. pt on his c-pap during the nightl Meal Information Percent Meal Consumed - Breakfast: 100 Percent Meal Consumed - Lunch: 100 Percent Meal Consumed - Dinner: 90 Subjective Subjective Patient was seen & assessed and interval progress reviewed with Treatment Team. The patient reports that he woke up this AM with "complete and utter despair". He denies any triggers, but says that his mornings are always his worst times, and his evenings his best time. He was given a one time dose of Klonopin 1 mg which he felt was helpful. He goes on to review his history of negative events in his life, in a stream of consciousness way by his description, that have led him to this anxious time. He is worrying forward about what he will do at home when he has these desparate times, who will he call or what will he do if he has questions. He is already worrying about the 2 week interval before being able to see his OP prescriber. We talk about grounding exercises and mindfulness and says that he is open to explore anything that might be helpful. He vehemently denies that he is suicidal, saying that he would never do that to his kids and his , "I have a lot to live for.". Physical Exam Psychiatric Orientation: alert and cooperative Apperance: appropriately dressed and appropriately groomed Eye Contact: good eye contact Motor Behavior: steady gait and station and no abnormal motor movements hyperverbal in a verbose and overly inclusive style Affect: + anxious affect Mood: + anxious mood Thought Process: + tangential thought process Thought Content: reality based without delusions Suicidal Thoughts: denies suicidal thoughts Homicidal Thoughts: denies homicidal thoughts Hallucinations: no auditory hallucinations and no visual hallucinations Cognition: recent memory grossly intact, remote memory grossly intact, attention grossly intact and language grossly intact Estimated Intelligence: average estimated intelligence Insight: + limited insight Judgement: + limited judgement Vital Signs (Past 24 Hours) Last Vital Signs Temp 36.7 C 05/12/18 06:46 Pulse 82 05/12/18 06:46 Resp 18 05/12/18 06:46 BP 148/90 H 05/12/18 06:46 Pulse Ox 96 05/10/18 13:29 Results & Data Current Inpatient Medications Current Inpatient Medications: Current Inpatient Medications Acetaminophen (Tylenol) 650 mg PO Q4H PRN PRN Reason: Headache or Minor Fever Stop: 06/09/18 12:50 Al Hydrox/Mg Hydrox/Simethicone (Maalox) 30 ml PO Q4H PRN PRN Reason: GI Upset Stop: 06/09/18 12:50 Bismuth Subsalicylate (Kaopectate) 15 ml PO PRN PRN PRN Reason: Loose Stool Stop: 06/09/18 12:50 Buspirone HCl (Buspar) 10 mg PO TID [facility] Stop: 06/10/18 13:59 Last Admin: 05/12/18 08:34 Dose: 10 mg Documented by: Clonazepam (Klonopin) 0.25 mg PO HS PRN PRN Reason: Sleep Stop: 06/09/18 16:24 Last Admin: 05/12/18 03:25 Dose: 0.25 mg Documented by: Clonazepam (Klonopin) 0.25 mg PO QAM [facility] Stop: 06/11/18 08:59 Last Admin: 05/12/18 08:35 Dose: 0.25 mg Documented by: Clonazepam (Klonopin) 0.25 mg PO BID PRN PRN Reason: Anxiety Stop: 06/10/18 12:49 Fluticasone Propionate (Flonase) 1 sprays NA DAILY [facility] Stop: 06/10/18 13:14 Last Admin: 05/12/18 08:36 Dose: 1 sprays Documented by: Hydroxyzine HCl (Vistaril) 25 mg PO Q4H PRN PRN Reason: Anxiety Stop: 06/09/18 12:50 Last Admin: 05/11/18 09:56 Dose: 25 mg Documented by: Hydroxyzine HCl (Vistaril) 50 mg PO HS [facility] Stop: 06/09/18 21:59 Last Admin: 05/11/18 21:12 Dose: 50 mg Documented by: Magnesium Hydroxide (Milk Of Magnesia) 30 ml PO DAILY PRN PRN Reason: Heartburn Stop: 06/09/18 12:50 Ciclopirox Topical Solution 8% - Patient's Own Med 1 ea EXT HS [facility] Stop: 06/10/18 21:59 Last Admin: 05/11/18 21:12 Dose: 1 ea Documented by: Sertraline HCl (Zoloft) 100 mg PO QAM [facility] Stop: 06/11/18 08:59 Last Admin: 05/12/18 08:36 Dose: 100 mg Documented by: Sodium Chloride ([place] Nasal) 1 - 2 sprays NA PRN PRN PRN Reason: Nasal Dryness/Congestion Stop: 06/09/18 12:50 Post Discharge Appointments Primary Care Physician Name Of Family Doctor: [facility] Angelita Newman Primary Care Date of Appointment with PCP: 05/11/18 Provider Appointment Comment: [id number], [place] [address] Psychiatrist Name of Psychiatrist: [facility] Angelita Salgado Psychiatrist's Date of Appointment with Psychiatrist: 05/31/18 Time of Appointment with Psychiatrist: 1:15 p.m. Psychiatric Appointment Comment: [address] [place] [address] Therapist Name of Therapist: June Elizalde Therapist's Date of Therapist Appointment: 05/24/18 Time of Therapist Appointment: 2:00 p.m. (please arrive by 1:45 p.m.) Therapy Appointment Comment: [address] [place] [address] Contact Information Discharge Discharge Address: [address] [place] [address] CPT Code CPT Code 35356
[2018-05-12] MEDS: clonazePAM 0.5 MG TAB PO SCH (22:05)
[2018-05-12] MEDS: CICLOPIROX 8% EXT SCH (22:05)
[2018-05-13] MEDS: SERTRALINE HCL 100 MG TABLET PO SCH (08:38)
[2018-05-13] MEDS: FLUTICASONE PROPIONATE NA SPR 16 GM BTL SCH (08:38)
[2018-05-13] MEDS: clonazePAM 0.5 MG TAB PO SCH (08:38)
--- NOTE | 2018-05-13 10:35 | Psychiatric Progress Note ---
Date of Service May 13, 2018 Impression / Recommendations Impression My overall impression of Mr. Brand is that, at baseline, he has certain obsessive-compulsive personality traits that tend to become exaggerated when he is experiencing depression or increase in his generalized anxiety symptoms, often in response to certain psychosocial stressors. He does have some insight into this and, for example, today said, "I know this is just part of my tending to be obsessive, but I am going to ask you anyway. What can I expect in the next week in terms of my response? What are my top three hurdles?" Patient does appear to be responding favorably to combination of sertraline 100 mg daily, buspirone 10 mg 3 times a day, and clonazepam in varying dosages. He reports no noted side effects from any of these medications and believes that he is tolerating them well. The staff reports, as is the patient, that he did "much better" after receiving a full milligram of clonazepam yesterday morning during the height of the high anxiety that he reports that he experiences late in the morning, every morning, and the dose of clonazepam was increased to 0.5 mg twice a day. Today, the patient reports that he is "somewhat" better in terms of his anxiety, but says that his anxiety persists and is still interfering with his ability to concentrate and stay on task. The plan today is to increase his dose of sertraline from 100 mg a day to 150 mg daily, and I will change his dose of buspirone from 10 mg 3 times a day to 15 mg twice a day. The dosage of diazepam will be increased to a dose of 1 mg in the morning, half a milligram in the early afternoon, and a half a milligram at bedtime, taken together with hydroxyzine. As above, the patient is aware of the habituation potential and the risk for complicated withdrawal, including seizures, associated with abrupt cessation of benzodiazepines. He is also aware of the increased risk of falls, accidents, injuries, and worsening depression associated with benzodiazepines. However, it seems clear of the the patient has been enjoying immediate relief from his disabling anxiety, and he understands that the goal is to achieve full therapeutic benefit from sertraline and buspirone, and then look to tapering clonazepam on an outpatient basis. (1) Generalized anxiety disorder: 05/10/18 - Begin Sertraline 50 mg daily and titrate as indicated. - Begin BuSpar 5 mg BID and titrate as indicated. 05/11/18 -Increase sertraline to 100 mg daily. -Give clonazepam 0.5 mg stat for anxiety. -Begin clonazepam 0.25 qam as a standing dose. Offer clonazepam 0.25 BID PRN anxiety during the day. Continue clonazepam 0.25 mg HS, with repeat times one before 3:30AM. -Increase BuSpar to 10 mg BID. 05/12/18 - Increase Klonopin to 0.5 mg BID and continue prn's - Provide the patient with written material re: mindfulness and grounding exercises. 05/12/18 -Discontinue PRN clonazepam -Increase scheduled clonazepam to 1 mg qAM 0.5 mg q1400, n 0.5 mg HS -Increase sertraline to 150 mg daily. -Discontinue buspirone 10 mg 3 times daily daily and began buspirone 15 mg twice daily. -Continue hydroxyzine at bedtime. Present on Admission?: Yes (2) Obsessive compulsive disorder: 05/10/18 - Begin sertraline 50 mg daily for both depression and OCD. -Clonazpam HS for night-time obsessive features. 05/11/18 - Increase sertraline to 100 mg daily. - Discontinue suicide precautions. The patient strongly denies any suicidal ideation. 05/13/18 --Sertraline is being increased further to a dose of 150 mg daily. --The patient reports that his intrusive obsessive thoughts have been diminished, and he notes that he is tolerating both BuSpar and sertraline well. (3) Major depress dis, severe: 05/10/18 -Sertraline 50 mg HS for depression, anxiety and OCD symptoms. -Not suicidal, per the patient, but has a gun collection at home and is not disposed to secure it. -Hydroxyzine 50 mg HS for sleep (standing order) -Consider Ambien or mirtazepine if not effective. (Reports trazodone was not effective in the past.) 05/11/18 -Increase sertraline to 100 mg daily and continue to titrate -Consider adding aripiprazole 5 mg as an adjunct. 05/12 - Meds as above 05/13 -Sertraline increased to a dose of 150 mg daily. -Defer adding an adjunct at this time Present on Admission?: Yes Inventory Assets Strengths: Motivated to recovery. Supportive family. Successful career. Needs: Relief from depression, generalized anxiety, and obsessional thoughts. Risk Factors Assessment Male: Yes : Yes Do You Have Access To A Gun?: Yes Health Problems: No Mental Health Diagnoses: Yes Substance Use Disorders: No Previous Attempt: No Previous Attempt; Highly Lethal: No Previous Attempt; Planned: No Previous Attempt; Didn't Tell Anyone: No Family History of Suicide: No Previous Psychiatric Hospitalization: No Hopelessness: No Smoker: No Protective Factors Assessment Jehovah'S Witness Beliefs: Yes : Yes Responsible for Young Children: No Employed: No (Retired) Stable Relationships: Yes Supportive Family: Yes Good Rapport with Provider: Yes Absence of Any Risk Factors Above: No (The patient notes that he has guns in the house, and insists that he does not consider this to be a risk for him) Interval History Identifying Information 62 yo male admitted with severe and debilitating depression and anxiety. He is admitted voluntarily. Chief Complaint "I'm feeling somewhat better". Review of Systems Sleep Information Total Hours of Sleep: 6.75 Sleep Comments: received a prn dose of hs vistaril for sleep aid Meal Information Percent Meal Consumed - Breakfast: 100 Percent Meal Consumed - Lunch: 100 Percent Meal Consumed - Dinner: 100 Subjective Subjective Patient was seen & assessed and interval progress reviewed with Treatment Team. I met with the patient individually in order to assess his current mental status, evaluate his response to treatment, coordinate any necessary changes in his treatment regimen with the patient, and address issues and concerns that may arise. Today, the patient tells me that he is feeling "somewhat" better, but notes that mornings remain his most difficult period during the day. Per both staff and the patient he responded quite favorably yesterday to clonazepam 1 mg in the morning, and he reports that he feels that it does not cause him excess sedation. As he has previously, the patient tells me that part of his anxiety in the hospital has been related to the fact that he is not permitted to take a shower upon arising, part of his usual routine at home, and he notes that "showers help calm me down." He has learned several relaxation techniques in the hospital, such as deep breathing exercises, and he is familiar with meditation, relaxation videos, and mild exercise as a way of managing anxiety. He reports that he has not noticed any side effects associated with BuSpar or Zoloft, and we again reviewed the common side effects of both of these medications. (He had previously experienced anorgasmia associated with paroxetine, but is unable to say whether this will be a problem with sertraline.) The patient was encouraged by a visit from a friend last night because the friend told him that he, too, had gone through a similar period of time in his life where he felt overwhelmed by anxiety and unable decisions or engage in productive behaviors. That individual had responded to escitalopram, and I explained that certain medications may be effective for 1 person and not for another, depending on variables that include genetic differences. Of note is the fact that the patient tells me that yesterday he felt "every bit as anxious" as he had at home in the morning on the day of admission, but today he is pleased that he is feeling better and notes with some satisfaction that last night, for the first time in a long time, he slept the night through and was awakened by staff first thing this morning. Nevertheless, his anxiety persists, and he continues to have obsessional thoughts, although these seem to be less intrusive. His appetite remains good. The patient continues to report that he is having "0" thoughts of suicide or self injury. We also discussed that medicines such as clonazepam can impair balance, reaction time, and lead to increased risk of injury. Because the patient enjoys the hobby of woodworking, I advised him to be extremely cautious and to not use his woodworking equipment until he feels fully confident of his reaction times, balance, and coordination. He tells me that there are certain tasks that do not involve operating sharp equipment that he would be able to apply. We also discussed the long-term strategy for treatment. I told him that I would expect that the use of clonazepam would be short-term, pending achieving therapeutic benefit from sertraline and buspirone, and again advised him of the physical habituation potential associated with clonazepam. Physical Exam Psychiatric Orientation: oriented x 3 Apperance: appropriately dressed, appropriately groomed and appeared stated age Eye Contact: good eye contact Motor Behavior: + tremor Speech: normal rate/rhythm/volume of speech Affect: + anxious affect "Better. Not nearly as anxious today as I was yesterday, but still anxious." The patient's thought processes are somewhat overinclusive and circumstantial, consistent with obsessive-compulsive personality traits. Thought Content: reality based without delusions Suicidal Thoughts: denies suicidal thoughts Homicidal Thoughts: denies homicidal thoughts Hallucinations: no auditory hallucinations Cognition: recent memory grossly intact, remote memory grossly intact, attention grossly intact and language grossly intact Estimated Intelligence: + above average estimated intelligence Insight: + fair insight Judgement: good judgement Vital Signs (Past 24 Hours) Last Vital Signs Temp 36.5 C 05/13/18 06:45 Pulse 79 05/13/18 06:45 Resp 18 05/13/18 06:45 BP 145/88 H 05/13/18 06:45 Pulse Ox 96 05/10/18 13:29 Results & Data Current Inpatient Medications Current Inpatient Medications: Current Inpatient Medications Acetaminophen (Tylenol) 650 mg PO Q4H PRN PRN Reason: Headache or Minor Fever Stop: 06/09/18 12:50 Al Hydrox/Mg Hydrox/Simethicone (Maalox) 30 ml PO Q4H PRN PRN Reason: GI Upset Stop: 06/09/18 12:50 Bismuth Subsalicylate (Kaopectate) 15 ml PO PRN PRN PRN Reason: Loose Stool Stop: 06/09/18 12:50 Buspirone HCl (Buspar) 10 mg PO TID [facility] Stop: 06/10/18 13:59 Last Admin: 05/13/18 08:38 Dose: 10 mg Documented by: Clonazepam (Klonopin) 0.25 mg PO HS PRN PRN Reason: Sleep Stop: 06/09/18 16:24 Last Admin: 05/12/18 03:25 Dose: 0.25 mg Documented by: Clonazepam (Klonopin) 0.25 mg PO BID PRN PRN Reason: Anxiety Stop: 06/10/18 12:49 Clonazepam (Klonopin) 0.5 mg PO BID [facility] Stop: 06/11/18 20:59 Last Admin: 05/13/18 08:38 Dose: 0.5 mg Documented by: Fluticasone Propionate (Flonase) 1 sprays NA DAILY [facility] Stop: 06/10/18 13:14 Last Admin: 05/13/18 08:38 Dose: 1 sprays Documented by: Hydroxyzine HCl (Vistaril) 25 mg PO Q4H PRN PRN Reason: Anxiety Stop: 06/09/18 12:50 Last Admin: 05/11/18 09:56 Dose: 25 mg Documented by: Hydroxyzine HCl (Vistaril) 50 mg PO HS [facility] Stop: 06/09/18 21:59 Last Admin: 05/12/18 22:06 Dose: 50 mg Documented by: Magnesium Hydroxide (Milk Of Magnesia) 30 ml PO DAILY PRN PRN Reason: Heartburn Stop: 06/09/18 12:50 Ciclopirox Topical Solution 8% - Patient's Own Med 1 ea EXT HS [facility] Stop: 06/10/18 21:59 Last Admin: 05/12/18 22:05 Dose: 1 ea Documented by: Sertraline HCl (Zoloft) 100 mg PO QAM [facility] Stop: 06/11/18 08:59 Last Admin: 05/13/18 08:38 Dose: 100 mg Documented by: Sodium Chloride ([place] Nasal) 1 - 2 sprays NA PRN PRN PRN Reason: Nasal Dryness/Congestion Stop: 06/09/18 12:50 Post Discharge Appointments Primary Care Physician Name Of Family Doctor: [facility] Date of Appointment with PCP: 05/20/18 Time of Appointment with PCP: 12:50pm Provider Appointment Comment: [id number], [place] [address] Psychiatrist Name of Psychiatrist: [facility] Angelita Salgado Psychiatrist's Date of Appointment with Psychiatrist: 05/31/18 Time of Appointment with Psychiatrist: 1:15 p.m. Psychiatric Appointment Comment: [address] [place] [address] Therapist Name of Therapist: [facility] Angelita Elizalde Therapist's Date of Therapist Appointment: 05/24/18 Time of Therapist Appointment: 2:00 p.m. (please arrive by 1:45 p.m.) Therapy Appointment Comment: [address] [place] [address] Contact Information Discharge Discharge Address: [address] [place] [address] CPT Code CPT Code 66165
[2018-05-13] MEDS ORDERED: clonazePAM 0.5 MG TAB PO STA (10:49)
[2018-05-13] MEDS ORDERED: clonazePAM 0.5 MG TAB PO SCH ×2 (14:00→22:00)
[2018-05-13] MEDS: BusPIRone 15 MG TAB PO SCH (22:16)
[2018-05-13] MEDS: CICLOPIROX 8% EXT SCH (22:17)
[2018-05-14] MEDS: BusPIRone 15 MG TAB PO SCH (07:21)
[2018-05-14] MEDS: FLUTICASONE PROPIONATE NA SPR 16 GM BTL SCH (07:21)
[2018-05-14] MEDS ORDERED: clonazePAM 1 MG TAB PO SCH ×2 (07:30→09:00)
[2018-05-14] MEDS ORDERED: SERTRALINE HCL 50 MG TABLET PO SCH (09:00)
--- NOTE | 2018-05-14 09:46 | Discharge Summary ---
Date of Service May 14, 2018 History of Present Illness The patient reports that since mid February he has obsessed almost constantly about several issues, but primarily about the church question of "is there a hell?" Reportedly, the patient and his father recently had an argument on the subject, with the patient's father, a former malted milk mixer in the [facility], telling the patient that he does not believe in the "cartoon" version of hell and, this circumstance, because the patient to have what he refers to as a "crisis of cruz." Patient notes that he first became aware of his problem with obsessive-compulsive disorder when, in 2001, he was told that he had failed a section of a lie detector test that he had to take as part of a security clearance for his job. Specifically, he was told that he had failed the "disclosure" section which had to do with his disclosing confidential government and information to others. He could not recall doing so, but obsessed about the possibility that he might have inadvertently mentioned something to his . He subsequently periodically reported that he "might have" disclose certain things to his and, eventually, he lost his security clearance. (He was later told that part of the test often involves the examiner falsely asserting t hat that portion of the test had been failed.) He is security was restored in 2003, but subsequent to that he became aware of obsessional thoughts over such things as the stock market. After the stock market bear market of 2007 he found that he was compulsively checking the stock market in a ritualized fashion. Initially, the patient recognized that what had originally been "just OCD" turned to OCD and depression. The patient does not report obsessive-compulsive dyad such as germ phobia/handwashing, checking, counting, or excessive devotion to order or lists. The patient does report that he has had great deal of difficulty sleeping. 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 He notes that this pattern has been in place for quite some time. He was prescribed clonazepam 0.25 mg at bedtime, and although he feels this helps "a little," he says that it has not really allowed him to sleep much longer than he was sleeping without it. Further, the patient reports feeling generally anxious, and reports that his mood is both anxious and depressed. He complains of decreased energy, anhedonia, and psychosocial withdrawal. 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 I am too anxious and obsessed for anything else." There is no history of elvira or hypomania. The patient reports that he has "quite a gun collection" at home. The guns are secured in the cabinet, but he has a coles to them. He states, "100%, I am not going to commit suicide." I try to explain to him that with depression, suicidal ideation can subsequently occur if her depression becomes worse and that I would recommend that he secure the guns. His response was to say "that really will not be necessary. I will never commit suicide." In March 2018 he was placed on Pristiq at doses that range from 25 up to 100 mg a day. (He reports that he feels that he responded favorably to Pristiq in the past.) However, this time around he felt that Pristiq was not effective and after 4 days at 100 mg daily his told him to go back to the doctor because "it was not working." His primary care doctor, the prescribing physician, told him that he wanted him off all psychiatric medications for "2 weeks," and although the patient had told me that Pristiq was not helping, he he notes that discontinuing the medication seems to have resulted in an intensification of his earlier symptoms. Over the years, several psychiatric medications have been tried. He reports that he was given Paxil at an unspecified dose. He notes that he does not feel Paxil helped, and he experienced anorgasmia as a side effect. Later, he was given bupropion, again at unspecified dose, and he reports that he felt that that helped, at least with depression. Also, the patient had a trial of Lexapro, and the patient's recollection is that this medication had been helpful and did not result in an orgasmic. Physical Exam Psychiatric Orientation: oriented x 3 Apperance: appropriately dressed and appropriately groomed Eye Contact: good eye contact Motor Behavior: steady gait and station Speech: normal rate/rhythm/volume of speech Affect: euthymic affect "Doing well. Anxiety is under control, and this is usually my bad time." Thought Process: + circumstantial thought process Thought Content: reality based without delusions Suicidal Thoughts: denies suicidal thoughts Homicidal Thoughts: denies homicidal thoughts Hallucinations: no auditory hallucinations Cognition: remote memory grossly intact, attention grossly intact and language grossly intact Sometimes repeats questions that he has already asked to which he has already received an answer. Sometimes repeats recently made points and example. Estimated Intelligence: + above average estimated intelligence Insight: + fair insight Judgement: good judgement Vital Signs (Past 24 Hours) Last Vital Signs Temp 36.4 C L 05/14/18 09:33 Pulse 76 05/14/18 09:33 Resp 16 05/14/18 09:33 BP 132/79 05/14/18 09:33 Pulse Ox 96 05/14/18 09:33 Principal Diagnosis Generalized Anxiety Disorder (with depressed mood and obsessive thoughts and actions). Psychiatric Data During the course of hospitalization the patient was offered various modalities of psychiatric treatment. These included individual, group, activity, and milieu therapies. He was also treated with several psychiatric medications that proved to be effective. Initially, the patient was largely disabled as a function of his extreme anxiety. He described overwhelming obsessional and ruminative thoughts on various subjects, such as the state of the [place] market, and the existence of Hell. His anxiety was such that he had difficulty performing simple tasks, and had great difficulty attending when being directly addressed, and was fairly tremulous. He also described feeling depressed, and attributed his depressed mood to his feeling so anxious. Initially, we continued his outpatient anxiolytic medication, clonazepam 0.25 mg in the morning and at bedtime. Sertraline 50 mg daily was added, as well as buspirone 5 mg twice a day. The patient's anxiety persisted unabated, but he was able to tolerate both sertraline and buspirone without noted adverse effects. His dose of clonazepam was gradually increased, and we achieved successful management of his anxiety at the following dosage: Clonazepam 1 mg in the morning, followed by clonazepam 0.5 mg twice during the balance of the day with the sees for example at 1400 and at bedtime). The patient was told that he may adjust his dose timing and amounts, but that he is not to under any circumstances exceed the maximum prescribed combined dosage of 2 mg of clonazepam a day, without approval by a qualified provider. The patient's dose of sertraline was gradually increased to 150 mg daily, and the patient reports that he feels this medication has been helpful with his depressed mood. His buspirone was increased first to 10 mg 3 times a day and then changed to buspirone 15 mg twice a day. The patient noted no adverse effects in association with any of these medications. Although he has been given a diagnosis of obsessive-compulsive disorder, what we observed might be more consistent with an obsessive-compulsive personality style which may be exacerbated by stressful circumstances or by the onset of depression. There had been some reference to suicidality at the time of admission. However, at admission the patient strongly denied any suicidal thoughts and reported that he felt there was "0" chance that he would ever intentionally harm himself. Evidently, the concern about suicide came from his who reportedly was heard to say something such as "I think suicide may be the next step" in reference to the patient's distress. At any rate, the patient consistently denied any suicidal ideations throughout the entire stay and is not considered to be at substantial risk for suicide at this point, although he does have a gun collection at home. An additional concern was the patient's hobby of woodworking with power tools. He was advised to avoid working with power tools until he is fully conversant with his reaction times and ability to focus. He is also advised to proceed with extreme caution and, for example, we recommended that his first step and reintroducing himself to his shop, while taking sedative medications, would be to use a lady that does not pose any risk of direct contact with his person and a sharp object. Day of Discharge Assessment At the time of discharge, the patient reports that his mood is bright and he is largely free of anxiety. His discharge interview occurred at the time that he describes as his "worse." Of the day, namely between 10 and 11 AM. His affect was bright and fairly animated. He joked appropriately several times and smiled frequently during the discharge interview. He describes his mood as "Good. I think you can see how much better I am now." The patient is prone eschew a mbiguity, and, with some insight, repeatedly asks projective questions as if expecting a precise and guaranteed answer. For example, he repeatedly various times said, "so what exactly can I expect during the first 3 days following discharge?" At the same time, he reports that he has not been obsessing about existential questions such as the existence of hell, and he describes himself as being fairly sanguine at this point. I see no evidence that the patient is experiencing excess sedation. Initially that may arise following discharge is the emergence of delayed orgasm as a side effect of sertraline. He notes that he had experienced anorgasmia associated with fluoxetine in the past, but has not experienced it with other antidepressant medications. As noted above, the patient has consistently denied any suicidal thoughts and has no history of intentional self-injurious behaviors. At discharge, he continued to report that he is not experiencing any suicidal thoughts. He also has no history of violence directed towards the person or property of others and has no ideations in this regard. We were a little concerned because the patient, throughout the stay, had a tendency to repeat his stories, sometimes less than 24 hours after he had told him initially. He also tended to ask the same questions as if he had not already been given an answer. We attributed this primarily to anxiety, and did note that often he seem not to be listening to the responses but, instead, formulating his next question, as evidenced by the fact that he would sometimes interrupt the answer in order asked the next question. This observation was shared with the patient, and he agreed that he sometimes does not listen when he is feeling this and feels compelled to ask his next question or make his next point. Patient's insight was at least fair, although he does not seem to recognize the degree to which his tendency to obsess on certain points after they have been clearly made can interfere with functioning. To the contrary, he responds observation in this regard by saying things such as, "I think it is important for people to be able to figure out exactly what is going on. 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 Beliefs: Yes : Yes Responsible for Young Children: No Employed: No (Retired) Stable Relationships: Yes Supportive Family: Yes Good Rapport with Provider: Yes Absence of Any Risk Factors Above: No (The patient notes that he has guns in the house, and insists that he does not consider this to be a risk for him) Tobacco Cessation at Discharge Tobacco Cessation Medication Prescribed at Discharge: Not Applicable/Non-Smoker Total Time Total Time Spent: Greater Than 30 Minutes Total Time Includes: Examination of the patient, Discharge Planning and M edication Reconciliation Discharge Data Lab Results 05/10/18 05/10/18 05/10/18 10:32 10:32 11:11 WBC 4.96 RBC 4.73 Hgb 15.4 Hct 43.8 MCV 92.6 MCH 32.6 MCHC 35.2 RDW Std Deviation 43.3 RDW Coeff of [place] 12.7 Plt Count 189 MPV 10.9 H Immature Gran % (Auto) 0.2 Neut % (Auto) 67.6 Lymph % (Auto) 17.1 [place] % (Auto) 12.3 Eos % (Auto) 2.4 Baso % (Auto) 0.4 Immature Gran # (Auto) 0.01 Neut # (Auto) 3.35 Lymph # (Auto) 0.85 L [place] # (Auto) 0.61 H Eos # (Auto) 0.12 Baso # (Auto) 0.02 Sodium Potassium Chloride Carbon Dioxide Anion Gap BUN Creatinine Est Cr Clr Drug Dosing Est GFR ( Amer) Est GFR (Non-Af Amer) BUN/Creatinine Ratio Glucose Calcium Total Bilirubin AST ALT Alkaline Phosphatase Total Protein Albumin Globulin Albumin/Globulin Ratio TSH Urine Color Yellow Urine Appearance Clear Urine pH 7.5 Ur Specific [place] 1.012 Urine Protein Negative Urine Glucose (UA) Negative Urine Ketones Negative Urine Blood 3+ H Urine Nitrite Negative Urine Bilirubin Negative Urine Urobilinogen Negative Ur Leukocyte Esterase Negative Urine WBC (Auto) 1-5 Urine RBC (Auto) >30 H U Hyaline Cast (Auto) 1-5 U Epithel Cells (Auto) >30 H Urine Bacteria (Auto) Negative Salicylates Urine Opiates Screen Neg Ur Methadone, Qual Neg Acetaminophen Urine Barbiturates Neg Ur Phencyclidine (PCP) Neg U Amphetamin/Meth Scrn Neg MDMA (Ecstasy) Screen Neg U Benzodiazepines Scrn Neg Ur Cocaine Metabolite Neg U Marijuana (THC) Screen Neg Ethyl Alcohol mg/dL 05/10/18 05/10/18 05/10/18 11:11 11:11 11:11 WBC RBC Hgb Hct MCV MCH MCHC RDW Std Deviation RDW Coeff of [place] Plt Count MPV Immature Gran % (Auto) Neut % (Auto) Lymph % (Auto) [place] % (Auto) Eos % (Auto) Baso % (Auto) Immature Gran # (Auto) Neut # (Auto) Lymph # (Auto) [place] # (Auto) Eos # (Auto) Baso # (Auto) Sodium 139 Potassium 4.3 Chloride 105 Carbon Dioxide 27 Anion Gap 7.0 BUN 19 H Creatinine 0.85 Est Cr Clr Drug Dosing 95.4 Est GFR ( Amer) 109.8 Est GFR (Non-Af Amer) 94.7 BUN/Creatinine Ratio 21.8 H Glucose 98 Calcium 8.9 Total Bilirubin 0.4 AST 16 ALT 49 Alkaline Phosphatase 53 Total Protein 7.2 Albumin 4.0 Globulin 3.2 Albumin/Globulin Ratio 1.3 TSH 1.650 Urine Color Urine Appearance Urine pH Ur Specific [place] Urine Protein Urine Glucose (UA) Urine Ketones Urine Blood Urine Nitrite Urine Bilirubin Urine Urobilinogen Ur Leukocyte Esterase Urine WBC (Auto) Urine RBC (Auto) U Hyaline Cast (Auto) U Epithel Cells (Auto) Urine Bacteria (Auto) Salicylates < 1.7 L Urine Opiates Screen Ur Methadone, Qual Acetaminophen < 2 L Urine Barbiturates Ur Phencyclidine (PCP) U Amphetamin/Meth Scrn MDMA (Ecstasy) Screen U Benzodiazepines Scrn Ur Cocaine Metabolite U Marijuana (THC) Screen Ethyl Alcohol mg/dL < 3.0 Hospital Course (1) Generalized anxiety disorder: 05/10/18 - Begin Sertraline 50 mg daily and titrate as indicated. - Begin BuSpar 5 mg BID and titrate as indicated. 05/11/18 -Increase sertraline to 100 mg daily. -Give clonazepam 0.5 mg stat for anxiety. -Begin clonazepam 0.25 qam as a standing dose. Offer clonazepam 0.25 BID PRN anxiety during the day. Continue clonazepam 0.25 mg HS, with repeat times one before 3:30AM. -Increase BuSpar to 10 mg BID. 05/12/18 - Increase Klonopin to 0.5 mg BID and continue prn's - Provide the patient with written material re: mindfulness and grounding exercises. 05/13/18 -Discontinue PRN clonazepam -Increase scheduled clonazepam to 1 mg qAM 0.5 mg q1400, n 0.5 mg HS -Increase sertraline to 150 mg daily. -Discontinue buspirone 10 mg 3 times daily daily and began buspirone 15 mg twice daily. -Continue hydroxyzine at bedtime. 05/14/18 -The patient reports that his depression has resolved and his anxiety is now felt to be under "good control." -The patient continues to report freedom from any thoughts of intentional self injury, and indicates that he feels empowered to successfully return to the community. -Discharge is planned for later today. (2) Obsessive compulsive disorder: 05/10/18 - Begin sertraline 50 mg daily for both depression and OCD. -Clonazpam HS for night-time obsessive features. 05/11/18 - Increase sertraline to 100 mg daily. - Discontinue suicide precautions. The patient strongly denies any suicidal ideation. 05/13/18 --Sertraline is being increased further to a dose of 150 mg daily. --The patient reports that his intrusive obsessive thoughts have been diminished, and he notes that he is tolerating both BuSpar and sertraline well. (3) Major depress dis, severe: 05/10/18 -Sertraline 50 mg HS for depression, anxiety and OCD symptoms. -Not suicidal, per the patient, but has a gun collection at home and is not disposed to secure it. -Hydroxyzine 50 mg HS for sleep (standing order) -Consider Ambien or mirtazepine if not effective. (Reports trazodone was not effective in the past.) 05/11/18 -Increase sertraline to 100 mg daily and continue to titrate -Consider adding aripiprazole 5 mg as an adjunct. 05/12 - Meds as above 05/13 -Sertraline increased to a dose of 150 mg daily. -Defer adding an adjunct at this time 05/14 -Although the excessive rumination and intrusive, obsessive thoughts have certainly diminished, what seems to be laughs is a somewhat rigid personality structure that is given to requiring specific order and "rules." This may be more a function of the patient's personality style than an anxiety disorder. Post Discharge Appointments Primary Care Physician Name Of Family Doctor: R[facility] Date of Appointment with PCP: 05/20/18 Time of Appointment with PCP: 12:50pm Provider Appointment Comment: [id number], [place] [address] Primary Care Release of Information: Obtained, Reviewed and Signed Psychiatrist Name of Psychiatrist: [facility] Angelita Salgado Psychiatrist's Date of Appointment with Psychiatrist: 05/31/18 Time of Appointment with Psychiatrist: 1:15 p.m. Psychiatric Appointment Comment: [address] [place] [address] Psychiatrist Release of Information: Obtained, Reviewed and Signed Therapist Name of Therapist: [facility] Angelita Elizalde Therapist's Date of Therapist Appointment: 05/24/18 Time of Therapist Appointment: 2:00 p.m. (please arrive by 1:45 p.m.) Therapy Appointment Comment: [address] [place] [address] Therapist Release of Information: Obtained, Reviewed and Signed Smoking Cessation Counseling Tobacco Cessation Medication Prescribed at Discharge: Not Applicable/Non-Smoker Contact Information Discharge Discharge [address]: [address] [place] [id number] Discharge Plan Discharge Items Patient Disposition: Home - Self-Care Reason For Visit: DEPRESSION, OCD Discharge Diagnosis: Generalized Anxiety (with depressed mood and OCD) Condition: Good Discharge Goals: Improve function, Learn about illness and Specific goals Specific Goals: Avoid unreasonable anxiety and ruminations Activity: As commented below Activity Comment: Exercise caution when using power tools in your shop Non-emergency contact: Primary Care Provider, Psychiatrist and Therapist Call non-emergency contact if: you have any medication questions and your symptoms worsen Follow-up/Referrals: Harleen Newman MD [Primary Care Provider] - Diet: Regular Addtl Provider Instructions: Use relaxation techniques, soothing music/videos, non-strenuous exercise to manage breakthrough anxiety. Prescriptions: New clonazepam 0.5 mg Tablet 0.5 mg PO 1400 Qty: 30 RF: 0 clonazepam 0.5 mg Tablet 0.5 mg PO HS PRN (Reason: Sleep) Qty: 3 RF: 0 clonazepam 1 mg Tablet 1 mg PO QAM Qty: 30 RF: 0 hydroxyzine HCl 25 mg Tablet 50 mg PO HS PRN (Reason: Sleep) Qty: 30 RF: 0 sertraline 50 mg Tablet 150 mg PO QAM Qty: 90 RF: 0 buspirone 15 mg Tablet 15 mg PO BID Qty: 60 RF: 0 Continued aluminum chloride [Drysol Dab-O-Matic] 20 % solution 1 applic topical DAILY RF: 0 ciclopirox solution topical HS RF: 0 Flonase Allergy Relief 2 spray Inhalation DAILY RF: 0 Discontinued clonazepam 0.5 mg Tablet 0.25 mg BID PRN (Reason: Anxiety) RF: 0 Stand-Alone Forms: [facility] Discharge Orders: Discharge Order (Routine); Ordered 05/14/18 Ordered By: Tommy Madrid Admission Data Admit Date/Time: 05/10/18 12:52 Attending Provider: Tommy Madrid Admit Provider: Tommy Madrid Primary Care Provider: Harleen Newman Service: Psychiatry Other Interventions: Discharge Summary Assessment (RN) Last Done: 05/14/18 09:33 PSY Interdisciplinary Discharge Planning Last Done: 05/14/18 10:00 Pending Studies at Discharge: No
== END 2018-05-14 11:25 | disposition home or self-care (01) | DRG 880 ==
LOC: ED 09:43 → 3S 12:52